=== PATIENT | male | born 1990 | race Caucasian/White ===

== ENCOUNTER 2023-01-25 18:38 | Emergency (ER) | payer MEDICAID ==
[~2023-01-25] VITALS: Ht 172.7 cm; Wt 86.2 kg
[2023-01-25] MEDS ORDERED: IBUP-1953 PO (19:28)
[2023-01-25] MEDS ORDERED: IBUPROFEN 600 MG TABLET ONE (19:29)
[2023-01-25] MEDS ORDERED: IBUPROFEN 600 MG TABLET PO ONE (19:30)
[2023-01-25 19:38] VITALS: BP 150/89; TEMP 98.2; O2SAT 100
== END 2023-01-25 19:38 | disposition home or self-care (01) ==
LOC: ER 18:54
DX: S86.912A Strain of unspecified muscle(s) and tendon(s) at lower leg level, left leg, initial encounter (principal); X58.XXXA Exposure to other specified factors, initial encounter; Y93.61 Activity, american tackle football; Y92.89 Other specified places as the place of occurrence of the external cause; Y99.8 Other external cause status